=== PATIENT | female | born 2000 | race Caucasian/White ===

== ENCOUNTER 2020-05-29 15:32 | Emergency (ER) | payer MEDICAID ==
[~2020-05-29] VITALS: Ht 165.1 cm; Wt 113.4 kg
[2020-05-29 15:32] VITALS: BP_SYST 115
[2020-05-29] MEDS ORDERED: EPINEPHrine 1 MG/ML AMP IM ONE (16:00)
[2020-05-29] MEDS ORDERED: FAMOTIDINE PF 20 MG/2 ML VIAL IVP ONE (16:00)
[2020-05-29] MEDS ORDERED: DIPHENHYDRAMINE INJ 50 MG/ML VIAL IVP ONE (16:00)
[2020-05-29] MEDS ORDERED: methylPREDNISolone SOD SUCC/PF 62.5 MG/ML VIAL IVP ONE (16:00)
[2020-05-29 16:07] LABS: BASOPHILS % (AUTO) 0.1 % (0.0-2.0); EOSINOPHILS # (AUTO) 0.1 K/uL (0.0-0.4); EOSINOPHILS % (AUTO) 0.6 % (0.0-4.0); HEMATOCRIT 38.8 % (36-48); HEMOGLOBIN 13.3 g/dL (12.0-16.0); LYMPHOCYTES # (AUTO) 1.6 K/uL (1.0-5.5); LYMPHOCYTES % (AUTO) 12.2 % (20.5-51.5); MEAN CORPUSCULAR HEMOGLOBIN 31 pg (27-31); MEAN CORPUSCULAR HGB CONC 34 % (32-36); MEAN CORPUSCULAR VOLUME 90 fL (79.0-98.0); MONOCYTES # (AUTO) 0.2 K/uL (0.0-1.0); MONOCYTES % (AUTO) 1.6 % (1.7-9.3); NEUTROPHILS % (AUTO) 85.5 % (40.0-70.0); PLATELET COUNT (AUTO) 350 K/uL (130-430); RED BLOOD CELL COUNT(AUTO) 4.29 MIL/uL (4.2-6.2); RED CELL DISTRIBUTION WIDTH 14.5 % (9.0-15.0); WHITE BLOOD COUNT (AUTO) 12.8 K/uL (4.5-11.0)
[2020-05-29 16:11] LABS: CALCIUM 8.1 mg/dL (8.4-11.0); CREATININE 0.94 mg/dL (0.55-1.30); POTASSIUM 3.6 mmol/L (3.5-5.1)
[2020-05-29 16:21] LABS: ALBUMIN 3.2 g/dL (3.4-4.8); TOTAL BILIRUBIN 0.4 mg/dL (0.0-1.0)
[2020-05-29 18:30] VITALS: BP_SYST 127
== END 2020-05-29 18:56 | disposition home or self-care (01) ==
LOC: SED 15:32
DX: T78.2XXA Anaphylactic shock, unspecified, initial encounter (principal); J45.909 Unspecified asthma, uncomplicated; X58.XXXA Exposure to other specified factors, initial encounter
CPT/HCPCS: 36415; 80053; 81025; 84702; 85025; 96372; 96374; 96375; 99291; J0171; J1200; J2930; J3490

== ENCOUNTER 2020-05-29 22:45 | Inpatient (IN) | payer MEDICAID, SELFPAY ==
[~2020-05-29] VITALS: Ht 165.1 cm; Wt 112.9 kg
[2020-05-29 22:45] VITALS: BP_SYST 129
--- NOTE | 2020-05-29 22:47 | NUR ---
Placed in room 6 . Placed on registered nurse cardiac telemetry, blood pressure machine and pulse oximeter. To gown for exam. Side rails up. Report given to GENESIS CHEN.
--- NOTE | 2020-05-29 22:48 | NUR ---
ER at bedside examining patient.
--- NOTE | 2020-05-29 22:50 | NUR ---
pt a&o x4 from home c/o of allergic reaction that started monday after using hotel body wash. pt was seen earlier today at this ER for same symptoms. pt states symptoms have not been relieved and started itching again all over body but worse. pt denies nausea, trouble breathing, difficulty swallowing, chest pain, SOB. pt appears to have red guzman on skin from scratching. pt took 25mg of benadryl about an hour before coming back without relief.
--- NOTE | 2020-05-29 22:53 | NUR ---
# 20 gauge angiocath placed to RAC. Use of asceptic technique. Opsite placed over site. Blood return noted. Flushed with 10 cc of normal saline. No evidence of infiltration noted. Patient tolerated well.
--- NOTE | 2020-05-29 22:56 | NUR ---
Patient's code status is FULL CODE paperwork completed and placed in chart.
[2020-05-29] MEDS ORDERED: methylPREDNISolone SOD SUCC/PF 62.5 MG/ML VIAL IVP ONE (23:00)
[2020-05-29] MEDS ORDERED: DIPHENHYDRAMINE INJ 50 MG/ML VIAL IVP ONE ×2 (23:00→23:15)
--- NOTE | 2020-05-29 23:05 | NUR ---
Parents will go home and call with medications and dosages in order to reconcile medications.
--- NOTE | 2020-05-29 23:30 | NUR ---
CRITICAL LAB REPORTING - COVID POSITIVE.
--- NOTE | 2020-05-29 23:31 | NUR ---
Patient will be admitted to care of [facility]. Admitted to MEDSURG unit. Will go to room 123B. Belongings list completed. Complete and up to date summary report printed. SBAR report to be given at bedside with opportunity for questions.
--- NOTE | 2020-05-29 23:32 | NUR ---
COVID SWAB (PCR) COLLECTED AND BEING SENT TO LAB.
--- NOTE | 2020-05-29 23:36 | NUR ---
NOTIFIED DR. ROBLES PATIENT POSITIVE FOR COVID 19.
--- NOTE | 2020-05-29 23:40 | NUR ---
GAVE REPORT TO APRIL MONTGOMERY PRIOR TO TRANSFER TO [facility].
--- NOTE | 2020-05-29 23:40 | NUR ---
Transfer to [facility]. IV present no sign or symptom of infiltration.
--- NOTE | 2020-05-29 23:41 | NUR ---
ADMISSION NOTE Received patient from ER via gurney. Patient admitted with diagnosis of ALLERGIC DERMATITIS. Patient is awake, alert, oriented X 4. Patient oriented to hospital room, call light, toileting, pain management and safety-teach back done. Patient informed that ULISES will be HER nurse and that their room number is 123B. Personal belongings checked and Belongings List documented. Call light within reach.
--- NOTE | 2020-05-29 23:45 | NUR ---
ASSUMPTION OF CARE RECEIVED REPORT FROM ZENAIDA CHEN. PATIENT IN BED, AWAKE, AOX4. NOTED PINKISH DISCOLORATION ON CHEST AND ABDOMEN. NO COMPLAINTS OF SOB NOTED. WILL CONTINUE TO MONITOR. IV SITE PATENT AND INTACT, FLUSHING WELL WITH NO SIGNS OF INFILTRATION NOTED. PATIENT DENIES FEELINGS OF ITCHINESS AT THIS TIME. SAFETY, FALL, AND ISOLATION PRECAUTIONS IN PLACE. BED LOCKED IN LOW POSITION WITH CALL LIGHT WITHIN REACH.
--- NOTE | 2020-05-30 | NUR ---
PICTURES DISCOLORATION ON CHEST AND ABDOMEN RESOLVED BEFORE PICTURES COULD BE TAKEN. WILL CONTINUE TO MONITOR.
[2020-05-30 00:54] VITALS: BP_SYST 135
--- NOTE | 2020-05-30 01:30 | NUR ---
RN ROUNDS PATIENT COMPLAINS OF ITCHINESS ON CHEST, PATIENT ACTIVELY SCRATCHING. EDUCATED ON EFFECTS OF SCRATCHING, PATIENT VERBALIZED UNDERSTANDING. PROVIDED COLD PACKS, PATIENT REPORTS RELIEF OF ITCHINESS. WILL CONTINUE TO MONITOR.
[2020-05-30 04:00] VITALS: BP_SYST 138
--- NOTE | 2020-05-30 05:00 | NUR ---
MEDICATION ADMINISTERED MEDICATION ORDERED. PATIENT TOLERATED. PATIENT STATES SHE FEELS LIKE SHE IS GETTING A REACTION FROM THE BED LINENS. NOTABLE PINK DISCOLORATION TO HANDS, EARS, AND FACE. NO SIGNS OF SOB NOTED, PATIENT DENIES ANY FEELINGS OF ITCHINESS TO THROAT. WILL CONTINUE TO MONITOR.
[2020-05-30] MEDS: methylPREDNISolone SOD SUCC 40 MG/ML VIAL IVP SCH ×3 (05:03→21:26)
[2020-05-30] MEDS: DIPHENHYDRAMINE HCL 25 MG CAPSULE PO SCH ×4 (05:04→22:53)
[2020-05-30] MEDS ORDERED: DIPHENHYDRAMINE HCL 25 MG CAPSULE PO ONE (06:00)
[2020-05-30] MEDS ORDERED: methylPREDNISolone SOD SUCC 40 MG/ML VIAL IVP ONE (06:00)
--- NOTE | 2020-05-30 06:00 | NUR ---
CLOSING NOTE PATIENT RESTING COMFORTABLY IN BED ON PHONE, ASYMPTOMATIC AT THIS TIME. RESPIRATIONS EVEN AND UNLABORED ON ROOM AIR. IV SITE REMAINS PATENT AND INTACT. SAFETY, FALL, AND ISOLATION PRECAUTIONS REMAIN IN PLACE. BED LOCKED IN LOW POSITION WITH CALL LIGHT IN REACH. PATIENT STABLE. WILL CONTINUE TO MONITOR UNTIL ENDORSED TO AM NURSE.
--- NOTE | 2020-05-30 08:00 | NUR ---
A/Ox4. V/S stable. Patient is oriented to hospital room, call light, toileting, and call plan. Call light in place, bed locked at the lowest position, will continue to monitor.
[2020-05-30 09:26] VITALS: BP_SYST 121
[2020-05-30] MEDS: DIPHENHYDRAMINE HCL/ZINC ACET 28.3 GM CREAM.GM. TP PRN ×2 (10:27→21:40)
--- NOTE | 2020-05-30 10:28 | NUR ---
Patient is still c/o generalized pruritus. Dr. Mccarthy is called, and order is given.
--- NOTE | 2020-05-30 10:53 | NUR ---
CONSULT ID COVID DR FREEMAN [id number] S/W CHELSE EXCHANGE
[2020-05-30 12:00] VITALS: BP_SYST 122
[2020-05-30] MEDS ORDERED: CHOLECALCIFEROL (VITAMIN D3) 2,000 UNIT TABLET PO ONE (12:00)
[2020-05-30] MEDS ORDERED: ASCORBIC ACID 500 MG TABLET PO ONE (12:00)
--- NOTE | 2020-05-30 12:18 | NUR ---
Patient receives linen and clothes from her home.
[2020-05-30 12:56] LABS: BASOPHILS # (AUTO) 0.1 K/uL (0.0-0.2); BASOPHILS % (AUTO) 0.3 % (0.0-2.0); HEMATOCRIT 37.8 % (36-48); HEMOGLOBIN 12.8 g/dL (12.0-16.0); LYMPHOCYTES # (AUTO) 1.3 K/uL (1.0-5.5); LYMPHOCYTES % (AUTO) 6.7 % (20.5-51.5); MEAN CORPUSCULAR HEMOGLOBIN 31 pg (27-31); MEAN CORPUSCULAR HGB CONC 34 % (32-36); MEAN CORPUSCULAR VOLUME 90 fL (79.0-98.0); MONOCYTES # (AUTO) 0.5 K/uL (0.0-1.0); MONOCYTES % (AUTO) 2.8 % (1.7-9.3); NEUTROPHILS # (AUTO) 17.5 K/uL (1.8-7.7); NEUTROPHILS % (AUTO) 90.2 % (40.0-70.0); PLATELET COUNT (AUTO) 365 K/uL (130-430); RED BLOOD CELL COUNT(AUTO) 4.19 MIL/uL (4.2-6.2); RED CELL DISTRIBUTION WIDTH 14.2 % (9.0-15.0); WHITE BLOOD COUNT (AUTO) 19.4 K/uL (4.5-11.0)
[2020-05-30 13:30] LABS: ALBUMIN 3.4 g/dL (3.4-4.8); CALCIUM 8.9 mg/dL (8.4-11.0); CREATININE 0.76 mg/dL (0.55-1.30); POTASSIUM 3.7 mmol/L (3.5-5.1); TOTAL BILIRUBIN 0.4 mg/dL (0.0-1.0)
[2020-05-30 13:45] LABS: C-REACTIVE PROTEIN QUANT 3.6 mg/dL (0-0.5)
[2020-05-30 14:03] LABS: ERYTHROCYTE SEDIMENTATION RATE 32 MM/HR (0-20)
--- NOTE | 2020-05-30 14:57 | NUR ---
Patient reports that "her throat feels funny and mirella tight". Dr. Mccarthy is called; he stated he will come in later.
[2020-05-30 16:00] VITALS: BP_SYST 126
--- NOTE | 2020-05-30 16:30 | NUR ---
Dr. Mccarthy is at bedside and assessing patient.
--- NOTE | 2020-05-30 16:46 | NUR ---
Dietitian Recommendations * Recommend continuing regular diet LP, RD Please refer to Nutrition Assessment for details. Addendum: 05/30/20 at [address] Amended: Links added.
[2020-05-30] MEDS ORDERED: ACETAMINOPHEN 650 MG/20.3 ML UDC GT PRN (17:00)
[2020-05-30] MEDS ORDERED: ACETAMINOPHEN 325 MG TABLET PO PRN ×2 (17:15→17:30)
[2020-05-30] MEDS ORDERED: ACETAMINOPHEN 650 MG/20.3 ML UDC PO PRN (17:15)
[2020-05-30] MEDS ORDERED: ENOXAPARIN SODIUM 40 MG/0.4 ML SYRINGE SUBCUT ONE (18:00)
--- NOTE | 2020-05-30 18:11 | NUR ---
Patient is eating dinner, no signs of distress noted.
--- NOTE | 2020-05-30 19:15 | NUR ---
OPENING NOTE REPORT RECEIVED FROM DAYSHIFT NURSE. PATIENT RECEIVED LYING IN BED, WATCHING VIDEOS ON HER PHONE, AOX4, NO S/S OF ACUTE DISTRESS AT THIS TIME. BREATHING IS EVEN AND UNLABORED. IV SITE PATENT, NO SIGNS OF INFILTRATION OR INFECTION NOTED. CALL LIGHT WITH PATIENT. BED IS LOCKED AND AT LOWEST POSITION. WILL CONTINUE TO MONITOR.
[2020-05-30 20:00] VITALS: BP_SYST 131
[2020-05-30] MEDS: FAMOTIDINE PF 20 MG/2 ML VIAL IVP SCH (21:00)
--- NOTE | 2020-05-30 21:40 | NUR ---
ITCHING/SNACKS PATIENT COMPLAINED OF FEELING ITCHY, ADVISED TO ADMINISTER BENADRYL CREAM AT THIS TIME, PATIENT STATED IT HELPED. SNACKS REQUESTED, PROVIDED BY RN. ALL NEEDS MET. CALL LIGHT WITH PATIENT. WILL CONTINUE TO MONITOR.
--- NOTE | 2020-05-30 22:53 | NUR ---
MATHIEU SCHEDULED MEDICATION ADMINISTERED AT THIS TIME. ALL NEEDS MET. CALL LIGHT WITH PATIENT. WILL CONTINUE TO MONITOR.
[2020-05-31] VITALS: BP_SYST 128
--- NOTE | 2020-05-31 01:00 | NUR ---
ROUNDS PATIENT IN BED, SLEEPING. NO S/S OF ACUTE DISTRESS NOTED. BREATHING EVEN AND UNLABORED. WILL CONTINUE TO MONITOR.
--- NOTE | 2020-05-31 03:00 | NUR ---
ROUNDS PATIENT IN BED, SLEEPING. NO CHANGE FROM PREVIOUS CONDITION. CALL LIGHT WITH PATIENT. WILL CONTINUE TO MONITOR.
--- NOTE | 2020-05-31 05:00 | NUR ---
ROUNDS/ITCHING PATIENT IN BED, AWAKE, C/O ITCHINESS. SCHEDULED BENADRYL ADMINISTERED AT THIS TIME. WILL CONTINUE TO MONITOR AND REASSESS.
[2020-05-31] MEDS: methylPREDNISolone SOD SUCC 40 MG/ML VIAL IVP SCH ×3 (05:23→21:02)
[2020-05-31] MEDS: DIPHENHYDRAMINE HCL 25 MG CAPSULE PO SCH ×4 (05:23→23:29)
[2020-05-31 06:25] LABS: BASOPHILS % (AUTO) 0.3 % (0.0-2.0); HEMATOCRIT 33.5 % (36-48); HEMOGLOBIN 11.2 g/dL (12.0-16.0); LYMPHOCYTES # (AUTO) 1.6 K/uL (1.0-5.5); LYMPHOCYTES % (AUTO) 11.6 % (20.5-51.5); MEAN CORPUSCULAR HEMOGLOBIN 31 pg (27-31); MEAN CORPUSCULAR HGB CONC 34 % (32-36); MEAN CORPUSCULAR VOLUME 92 fL (79.0-98.0); MONOCYTES # (AUTO) 0.5 K/uL (0.0-1.0); MONOCYTES % (AUTO) 3.6 % (1.7-9.3); NEUTROPHILS # (AUTO) 11.6 K/uL (1.8-7.7); NEUTROPHILS % (AUTO) 84.5 % (40.0-70.0); PLATELET COUNT (AUTO) 300 K/uL (130-430); RED BLOOD CELL COUNT(AUTO) 3.66 MIL/uL (4.2-6.2); RED CELL DISTRIBUTION WIDTH 14.7 % (9.0-15.0); WHITE BLOOD COUNT (AUTO) 13.7 K/uL (4.5-11.0)
--- NOTE | 2020-05-31 06:46 | NUR ---
CLOSING NOTE PATIENT IN BED, AWAKE, AOX4, WATCHING VIDEOS ON PHONE. NO S/S OF ACUTE DISTRESS NOTED. BREATHING IS EVEN AND UNLABORED. IV SITE IS PATENT, NO SIGNS OF INFILTRATION OR INFECTION NOTED. PATIENT DENIES PAIN OR SOB, DENIES ITCHING AT THIS TIME. ALL NEEDS MET THROUGHOUT SHIFT. FALL, SAFETY, AND ISOLATION PRECAUTIONS MAINTAINED THROUGHOUT SHIFT. WILL CONTINUE TO MONITOR UNTIL PATIENT CARE IS ENDORSED TO ONCOMING DAYSHIFT NURSE.
[2020-05-31 06:56] LABS: CALCIUM 8.1 mg/dL (8.4-11.0); CREATININE 0.66 mg/dL (0.55-1.30); POTASSIUM 3.5 mmol/L (3.5-5.1)
[2020-05-31 08:00] VITALS: BP_SYST 125
--- NOTE | 2020-05-31 08:00 | NUR ---
A/Ox4, she is seen ambulating across the room. V/S stable. Patient is oriented to hospital room, call light, toileting, and call plan. Call light in place, bed locked at the lowest position, will continue to monitor.
[2020-05-31] MEDS: CHOLECALCIFEROL (VITAMIN D3) 2,000 UNIT TABLET PO SCH (08:29)
[2020-05-31] MEDS: FAMOTIDINE PF 20 MG/2 ML VIAL IVP SCH ×2 (08:29→21:00)
[2020-05-31] MEDS: ASCORBIC ACID 500 MG TABLET PO SCH (08:29)
[2020-05-31] MEDS: ENOXAPARIN SODIUM 40 MG/0.4 ML SYRINGE SUBCUT SCH ×2 (08:30→21:00)
--- NOTE | 2020-05-31 08:54 | NUR ---
Negative COVID PCR result is reported to Dr. Meneses. He ordered a second COVID PCR test due to lab results.
--- NOTE | 2020-05-31 11:10 | NUR ---
Patient is resting, no signs of distress noted.
[2020-05-31] MEDS: DIPHENHYDRAMINE HCL/ZINC ACET 28.3 GM CREAM.GM. TP PRN ×2 (11:47→15:14)
[2020-05-31 12:00] VITALS: BP_SYST 121
--- NOTE | 2020-05-31 13:00 | NUR ---
Patient is seen by Dr. Mccarthy.
--- NOTE | 2020-05-31 13:50 | NUR ---
RECEIVED REPORT FROM APRIL KAY. PT AWAKE AND ALERT. NO ACUTE DISTRESS NOTED. ALL NEEDS MET. CALL LIGHT IN REACH. CONTINUE TO MONITOR.
--- NOTE | 2020-05-31 15:15 | NUR ---
ROUTINE MEDS ADMINISTERED ORDERED PER MD, EDUCATION GIVEN, TOLERATED WELL. CONTINUE TO MONITOR Addendum: 05/31/20 at 1516 by Ayse Davila RN VITAL SIGNS TAKEN, 99.2 TEMP, RASHES ON VARIOUS PARTS OF THE BODY INCLUDING FOREHEAD. COOLING METHODS APPLIED, WILL MONITOR.
[2020-05-31 15:16] VITALS: BP_SYST 116
--- NOTE | 2020-05-31 18:04 | NUR ---
ROUTINE MEDS ORDERED PER MD, EDUCATION GIVEN, TOLERATED WELL. PT SITTING UP AT THE EDGE OF THE BED EATING DINNER. CONTINUE TO MONITOR.
--- NOTE | 2020-05-31 18:51 | NUR ---
CLOSING NOTES PT AWAKE, ALERT, AND ORIENTED TALKING ON THE PHONE. NONLABORED BREATHING NOTED ON ROOM AIR, TOLERATING WELL. PT DENIES PAIN AND SOB AT THIS TIME. IV LINE INTACT AND PATENT, NO SIGNS OF INFILTRATION NOTED. NO ACUTE DISTRESS NOTED. ALL NEEDS MET. CALL LIGHT IN REACH. FALL AND ASPIRATION AND ISOLATION PRECAUTIONS IN PLACE. WILL ENDORSE TO NOC NURSE.
--- NOTE | 2020-05-31 19:15 | NUR ---
OPENING NOTE REPORT RECEIVED FROM DAYSHIFT NURSE. PATIENT RECEIVED LYING IN BED, AWAKE, AOX4, NO S/S OF ACUTE DISTRESS NOTED. BREATHING EVEN AND UNLABORED. PATIENT COMPLAINS OF ITCHINESS, ICE PACKS PROVIDED, WILL CONTINUE TO ASSESS. IV SITE IS PATENT, NO SIGNS OF INFILTRATION OR INFECTION NOTED. CALL LIGHT WITH PATIENT, DEMONSTRATED BACK PROPER USE. BED IS LOCKED AND AT LOWEST POSITION. WILL CONTINUE TO MONITOR.
[2020-05-31 20:00] VITALS: BP_SYST 129
--- NOTE | 2020-05-31 21:00 | NUR ---
SNACKS/REASSESSMENT PATIENT REQUESTED FOR SNACKS, PROVIDED BY RN. PATIENT STATED THAT ITCHING HAS SUBSIDED, FEELS BETTER. ALL NEEDS MET. CALL LIGHT WITH PATIENT. WILL CONTINUE TO MONITOR.
--- NOTE | 2020-05-31 23:00 | NUR ---
ROUNDS PATIENT IN BED, AWAKE, WATCHING VIDEOS ON HER PHONE. NO S/S OF ACUTE DISTRESS. PATIENT REQUESTING FOR SLEEPING PILL. WILL CALL DR. ROBLES.
[2020-05-31] MEDS ORDERED: ZOLPIDEM TARTRATE 5 MG TABLET PO PRN (23:15)
--- NOTE | 2020-05-31 23:49 | NUR ---
SLEEPING PILL AMBIEN ADMINISTERED AT THIS TIME PER PRN ORDER. CALL LIGHT WITH PATIENT. ALL NEEDS MET. WILL CONTINUE TO MONITOR.
[2020-06-01] VITALS: BP_SYST 125
--- NOTE | 2020-06-01 02:00 | NUR ---
ROUNDS PATIENT SLEEPING. NO S/S OF ACUTE DISTRESS NOTED. BREATHING EVEN AND UNLABORED. CALL LIGHT WITH PATIENT. WILL CONTINUE TO MONITOR.
--- NOTE | 2020-06-01 04:00 | NUR ---
ROUNDS PATIENT IN BED, SLEEPING COMFORTABLY. NO CHANGE FROM PREVIOUS CONDITION. ALL NEEDS MET. CALL LIGHT WITH PATIENT. WILL CONTINUE TO MONITOR.
[2020-06-01] MEDS: methylPREDNISolone SOD SUCC 40 MG/ML VIAL IVP SCH (05:44)
[2020-06-01] MEDS: DIPHENHYDRAMINE HCL 25 MG CAPSULE PO SCH ×2 (05:45→12:14)
--- NOTE | 2020-06-01 06:25 | NUR ---
ROUNDS PATIENT IN BED, SLEEPING COMFORTABLY. NO S/S OF ACUTE DISTRESS NOTED. BREATHING IS EVEN AND UNLABORED. IV SITE IS PATENT, NO SIGNS OF INFILTRATION OR INFECTION NOTED. ALL NEEDS MET THROUGHOUT SHIFT. FALL, SAFETY, AND ISOLATION PRECAUTIONS MAINTAINED THROUGHOUT SHIFT. WILL CONTINUE TO MONITOR UNTIL PATIENT CARE IS ENDORSED TO ONCOMING DAYSHIFT NURSE.
[2020-06-01 08:00] VITALS: BP_SYST 125
--- NOTE | 2020-06-01 08:00 | NUR ---
initial rounds rec patient awake alert ambulating at bedside. ivl on the r ac intact. no infiltration noted. resp easy and unlabored. no sob noted. bed to the lowest position and side rails up and locked. call light within reached and knows when to call for assistance.
[2020-06-01] MEDS: ASCORBIC ACID 500 MG TABLET PO SCH (08:46)
[2020-06-01] MEDS: CHOLECALCIFEROL (VITAMIN D3) 2,000 UNIT TABLET PO SCH (08:46)
[2020-06-01] MEDS: FAMOTIDINE PF 20 MG/2 ML VIAL IVP SCH (08:47)
[2020-06-01] MEDS: ENOXAPARIN SODIUM 40 MG/0.4 ML SYRINGE SUBCUT SCH (09:17)
--- NOTE | 2020-06-01 10:00 | NUR ---
rounds due meds were given and valerio well. no sob noted.
--- NOTE | 2020-06-01 12:00 | NUR ---
rounds seen by dr bustillo and stated will go home if covid test will be negative. resting comfortably. no sob noted.
--- NOTE | 2020-06-01 14:30 | NUR ---
rounds dr bustillo was called for the result of the covid and awaiting to call back.
[2020-06-01] MEDS ORDERED: Medrol dose pack PO ×2 (16:26→16:28)
[2020-06-01] MEDS ORDERED: BEN50 PO (16:27)
[2020-06-01 16:33] VITALS: BP_SYST 126
--- NOTE | 2020-06-01 17:10 | NUR ---
closing notes dr elena came and d/c patient and with prescription to go home. dr bustillo called and notified re negative pcr. ivl and id band were removed. instructed re take home prescription and appt with pmd in an week or2. pt is stable , needs attended. was wheeled via wheelchair and dad came to last picker patient.
== END 2020-06-01 17:00 | disposition home or self-care (01) | DRG 385 ==
LOC: SED 22:45 → OBSVTOIN 23:06 → INTOOBSV 23:06 → SMU 23:06
PROVIDERS: ADMIT Family Medicine; ATTEND Family Medicine
DX: L50.9 Urticaria, unspecified (principal); J45.909 Unspecified asthma, uncomplicated
CPT/HCPCS: 36415; 80048; 80053; 82728; 83735-TC; 85025; 85379; 85651-TC; 86140; 96374; 96375; 99285; J1030; J1200; J1650; J2930; J3490; Q0163; U0003